=== PATIENT | female | born 1965 | race Caucasian/White ===

== ENCOUNTER 2017-04-26 10:08 | Emergency (ER) | payer OTHER ==
[~2017-04-26] VITALS: Ht 154.9 cm; Wt 85.0 kg
[2017-04-26 10:10] VITALS: BP 113/68; PULSE 83; RESP 14; TEMP 98.1; O2SAT 97
--- NOTE | 2017-04-26 10:59 | PD ---
HPI Chief Complaint: Psychiatric Symptoms Time Seen by Provider: 10:26 Travel History International Travel<30 days: No Contact w/Intl Traveler<30days: No Traveled to known affect area: No History of Present Illness HPI 52yo F with PMH of epilepsy on dilantin presents to the ED because she is nervous about having cancer. Said her last menstrual period is 1 year ago but she has been spotting. Last episode of vaginal bleeding was 2 days ago. Pt currently denies any fever, chest pain, sob, n/v, abdominal pain, vaginal discharge or bleeding. Pt has been compliant with dilantin and has not had any seizures. Pt states she has anxiety and feels very nervous about this. Denies any suicidal or homicidal ideations. Pt also has an abscess that was draining in left thigh and saw a physician on Saturday and is on bactrim and said that is healing well. PFSH Social History Tobacco Use: No Review of Systems Except as stated in HPI: all other systems reviewed are Neg Physical Exam Narrative GENERAL: 52yo F anxious appearing. SKIN: Focused skin assessment warm/dry. HEAD: Atraumatic. Normocephalic. EYES: Pupils equal and round. No scleral icterus. No injection or drainage. ENT: No nasal bleeding or discharge. Mucous membranes pink and moist. NECK: Trachea midline. No JVD. CARDIOVASCULAR: Regular rate and rhythm. No murmur appreciated. RESPIRATORY: No accessory muscle use. Clear to auscultation. Breath sounds equal bilaterally. GASTROINTESTINAL: Abdomen soft, non-tender, nondistended. MUSCULOSKELETAL: Left thigh: +Drained abscess 2cm with mild surrounding erythema. No obvious deformities. No clubbing. No cyanosis. No edema. NEUROLOGICAL: Awake and alert. No obvious cranial nerve deficits. Motor grossly within normal limits. Normal speech. PSYCHIATRIC: Anxious. Data Data Last Documented VS Vital Signs Date Time Temp Pulse Resp B/P (MAP) Pulse Ox O2 Delivery O2 Flow Rate FiO2 04/26/17 10:40 04/26/17 10:10 98.1 83 14 97 Orders Orders Ed Discharge Order (04/26/17 11:01) MDM Medical Decision Making Medical Screen Exam Complete: Yes Emergency Medical Condition: Yes Differential Diagnosis Anxiety vs. postmenopausal vaginal bleeding Narrative Course 52yo F here feeling anxious about having vaginal spotting when her menstrual period ended 1 year ago. I explained to patient that I will do test, do a pelvic exam and also give her ativan 1mg PO to calm her down. Explained to pt that she has to see a jeep driver as soon as possible for endometrial biopsy. Explain that I will do blood work and urine if she wants to see a psychiatrist. Pt initially was happy with plan but then decided she does not want to stay for any of it. Pt left the ED without any of my recommended treatments. Pt is not suicidal or homicidal and can leave if she wants to. AMA : The risks of leaving against medical advice without further evaluation treatment were discussed with the patient. These risks include cardiac dysfunction, cardiac dysrhythmia, possible heart attack, possible stroke or . The patient indicated understanding of these risks and appeared to have the capacity to make this decision. Diagnosis Primary Impression: Anxiety Additional Impression: Vaginal spotting Referrals: Modesto Kim MD 1 day Vaginal spotting in post menopausal female. Patient Instructions: General Instructions Departure Forms: Tests/Procedures Additional Instructions: Please follow up with jeep driver in 1-2 days. Return to the ED if you change your mind. Med/Other Pt SpecificInfo: No Change to Meds Disposition: 07 AGAINST MEDICAL ADVICE Condition: Stable Sonali Baltazar DO Apr 26, 2017 10:59
== END 2017-04-26 11:00 | disposition left against medical advice (07) ==
LOC: NEPD 10:08
DX: F41.9 Anxiety disorder, unspecified (principal); N95.0 Postmenopausal bleeding
CPT/HCPCS: 99282

== ENCOUNTER 2017-04-28 10:44 | Emergency (ER) | payer OTHER ==
[2017-04-28] MEDS ORDERED: BACT400T PO (10:55)
[2017-04-28] MEDS ORDERED: DILA30CA PO (10:55)
[2017-04-28 10:56] VITALS: BP 136/78; PULSE 72; RESP 17; O2SAT 97
[2017-04-28] MEDS ORDERED: LORA-392 PO (11:02)
[2017-04-28 11:40] LABS: AUTOMATED NEUTROPHIL # 6.7 TH/MM3 (1.8-7.7); BASOPHIL # 0.1 TH/MM3 (0-0.2); BASOPHIL % 0.9 % (0.0-2.0); EOSINOPHIL # 0.1 TH/MM3 (0-0.4); HEMATOCRIT 38.8 % (35.0-46.0); HEMO FLAGS DIFF FINAL; LYMPH % 21.7 % (9.0-44.0); LYMPHOCYTE # 2.1 TH/MM3 (1.0-4.8); MEAN CELL VOLUME 85.4 FL (80.0-100.0); MEAN CORPUSCULAR HEMOGLOBIN 30.2 PG (27.0-34.0); MEAN CORPUSCULAR HGB CONC 35.4 % (32.0-36.0); MONO % 6.7 % (0.0-8.0); NEUT % 69.7 % (16.0-70.0); PLATELET COUNT 318 TH/MM3 (150-450); RED BLOOD COUNT 4.55 MIL/MM3 (4.00-5.30); WHITE BLOOD COUNT 9.7 TH/MM3 (4.0-11.0)
[2017-04-28 12:03] LABS: ALT (GPT) 34 U/L (10-53)
[2017-04-28 12:12] LABS: ALKALINE PHOSPHATASE 139 U/L (45-117); TOTAL BILIRUBIN ADULT 0.1 MG/DL (0.2-1.0)
[2017-04-28 12:51] LABS: ANION GAP 7 MEQ/L (5-15); AST (GOT) 22 U/L (15-37); BICARBONATE 23.3 MEQ/L (21.0-32.0); BLOOD UREA NITROGEN 11 MG/DL (7-18); CHLORIDE 104 MEQ/L (98-107); GLOMERULAR FILTRATION RATE 80 ML/MIN (>89); POTASSIUM 4.2 MEQ/L (3.5-5.1); SODIUM (NA) 134 MEQ/L (136-145)
--- NOTE | 2017-04-28 13:35 | PD ---
HPI Chief Complaint: Syncope/Near-Syncope Time Seen by Provider: 10:55 Travel History International Travel<30 days: No Contact w/Intl Traveler<30days: No Traveled to known affect area: No History of Present Illness HPI So 52 year-old woman presents to the emergency department complaining of near- syncope and lightheadedness at work today. She states she's been under a lot of stress recently. Most of her history of ulcer on distress is a she's under with her , recent move, and her daughter is Down syndrome. She states she been more anxious and tearful and depressed recently. She states she really doesn't know what to do, does not help in the area, and today at work felt lightheaded while she was working. No chest pain. No trouble breathing. No other complaints. History Past Medical History Medical History: Denies Significant Hx Menopausal: Yes Past Surgical History Surgical History: No Previous Surgery Social History Alcohol Use: Yes Tobacco Use: No Allergies-Medications Reported Meds & Prescriptions Reported Meds & Active Scripts Active Reported Ativan (Lorazepam) 0.5 Mg Tab Unknown Dose PO DAILY PRN Dilantin (Phenytoin Extended) 30 Mg Cap Unknown Dose PO TID Bactrim (Sulfamethoxazole-Trimethoprim) 400-80 Mg Tab Unknown Dose PO BID Review of Systems Except as stated in HPI: all other systems reviewed are Neg Physical Exam Narrative GENERAL: Well-appearing 52 year-old woman, no acute distress. SKIN: Focused skin assessment warm/dry. HEAD: Atraumatic. Normocephalic. EYES: Pupils equal and round. No scleral icterus. No injection or drainage. ENT: No nasal bleeding or discharge. Mucous membranes pink and moist. NECK: Trachea midline. No JVD. CARDIOVASCULAR: Regular rate and rhythm. No murmur appreciated. RESPIRATORY: No accessory muscle use. Clear to auscultation. Breath sounds equal bilaterally. GASTROINTESTINAL: Abdomen soft, non-tender, nondistended. Hepatic and splenic margins not palpable. MUSCULOSKELETAL: No obvious deformities. No clubbing. No cyanosis. No edema. NEUROLOGICAL: Awake and alert. No obvious cranial nerve deficits. Motor grossly within normal limits. Normal speech. PSYCHIATRIC: Tearful and anxious. Data Data Last Documented VS Vital Signs Date Time Temp Pulse Resp B/P (MAP) Pulse Ox O2 Delivery O2 Flow Rate FiO2 04/28/17 10:56 72 17 136/78 (97) 97 Room Air Orders Orders Complete Blood Count With Diff (04/28/17 11:07) Comprehensive Metabolic Panel (04/28/17 11:07) Iv Access Insert/Monitor (04/28/17 11:07) Thyroid Stimulating Hormone (04/28/17 11:07) Electrocardiogram (04/28/17 ) Labs Laboratory Tests Test 04/28/17 11:30 White Blood Count 9.7 TH/MM3 Red Blood Count 4.55 MIL/MM3 Hemoglobin 13.7 GM/DL Hematocrit 38.8 % Mean Corpuscular Volume 85.4 FL Mean Corpuscular Hemoglobin 30.2 PG Mean Corpuscular Hemoglobin Concent 35.4 % Red Cell Distribution Width 14.0 % Platelet Count 318 TH/MM3 Mean Platelet Volume 8.6 FL Neutrophils (%) (Auto) 69.7 % Lymphocytes (%) (Auto) 21.7 % Monocytes (%) (Auto) 6.7 % Eosinophils (%) (Auto) 1.0 % Basophils (%) (Auto) 0.9 % Neutrophils # (Auto) 6.7 TH/MM3 Lymphocytes # (Auto) 2.1 TH/MM3 Monocytes # (Auto) 0.6 TH/MM3 Eosinophils # (Auto) 0.1 TH/MM3 Basophils # (Auto) 0.1 TH/MM3 CBC Comment DIFF FINAL Differential Comment Blood Urea Nitrogen 11 MG/DL Creatinine 0.76 MG/DL Random Glucose 89 MG/DL Total Protein 8.6 GM/DL Albumin 3.7 GM/DL Calcium Level 9.5 MG/DL Alkaline Phosphatase 139 U/L Aspartate Amino Transf (AST/SGOT) 22 U/L Alanine Aminotransferase (ALT/SGPT) 34 U/L Total Bilirubin 0.1 MG/DL Sodium Level 134 MEQ/L Potassium Level 4.2 MEQ/L Chloride Level 104 MEQ/L Carbon Dioxide Level 23.3 MEQ/L Anion Gap 7 MEQ/L Estimat Glomerular Filtration Rate 80 ML/MIN Thyroid Stimulating Hormone 3rd Gen 0.543 uIU/ML [facility] Medical Decision Making Medical Screen Exam Complete: Yes Emergency Medical Condition: Yes Interpretation(s) My review of EKG: Normal sinus rhythm at a rate of 67, normal axis, normal intervals, no acute ischemia. LABS: CBC is unremarkable. CMP is unremarkable. TSH unremarkable. Differential Diagnosis Weakness, anxiety, and dehydration, stress reaction, other Narrative Course Medical decision making 52-year-old presents with what seems to be a near syncopal episode at work but her symptoms really seem the all revolve around her exhaustion at home and emotional stresses. He looks well. She would likely benefit from outpatient referral. Workup for syncope is unremarkable. Recommend supportive treatment. Diagnosis Primary Impression: Adjustment reaction Additional Impression: Near syncope Referrals: [facility] week Additional Instructions: Drink plenty fluids stay well-hydrated. Up with Matthew Hook for referral to counseling services. Return to the emergency department for any chest pain, trouble breathing, or any other new or worsening symptoms. Med/Other Pt SpecificInfo: No Change to Meds Disposition: 01 DISCHARGE HOME Condition: Stable Bruce Sutherland MD Apr 28, 2017 13:35
--- NOTE | 2017-04-29 15:17 | EKG ---
Date Performed: 04/28/2017 Time Performed: 11:17:07 PTAGE: 52 years EKG: Sinus rhythm NORMAL ECG NO PREVIOUS TRACING DOCTOR: Luis Antonio Vazquez Interpretating Date/Time 04/29/2017 15:16:24
== END 2017-04-28 14:07 | disposition home or self-care (01) ==
LOC: NEPE 10:44
DX: F43.20 Adjustment disorder, unspecified (principal); R55 Syncope and collapse; R42 Dizziness and giddiness; Z79.899 Other long term (current) drug therapy
CPT/HCPCS: 80053; 84443; 85025; 93005; 99284